=== PATIENT | male | born 1990 | race Hispanic/Latino ===

== ENCOUNTER 2024-02-28 13:07 | Emergency (ER) | payer OTHER ==
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
[2024-02-28] MEDS ORDERED: ACETAMINOPHEN 500 MG TAB ONE (13:47)
[2024-02-28] MEDS ORDERED: IBUPROFEN 400 MG TAB ONE (13:47)
[2024-02-28] MEDS ORDERED: TDAP (DIPHTH,PERTUSS(ACELL),TET VAC) 0.5 ML VIAL IMVAC ONE (13:48)
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
[2024-02-28 17:22] VITALS: TEMP 97.6; O2SAT 100
[2024-02-28 17:23] VITALS: BP 130/89
== END 2024-02-28 14:45 | disposition home or self-care (01) ==
LOC: ER 13:07
DX: S02.2XXA Fracture of nasal bones, initial encounter for closed fracture (principal); R07.89 Other chest pain; M54.2 Cervicalgia; Z72.0 Tobacco use
CPT/HCPCS: 70450; 70486; 71045; 72125; 76377; 96372; 99284